=== PATIENT | female | born 1990 | race Caucasian/White ===

== ENCOUNTER 2021-10-24 14:10 | Inpatient (IN) | payer OTHER ==
[2021-10-24] MEDS ORDERED: BETAMET ACET/BETAMET NA PH 30 MG/5 ML VIAL ONE (14:52)
[2021-10-24] MEDS ORDERED: AMPICILLIN SODIUM 2 GM VIAL ONE (15:19)
[2021-10-24] MEDS ORDERED: BETAMET ACET/BETAMET NA PH 30 MG/5 ML VIAL IM ONE (15:37)
[2021-10-24] MEDS ORDERED: AMPICILLIN - 2 GM in SODIUM CHLORIDE 100 ML IVPB ONE (15:38)
[2021-10-24] MEDS ORDERED: ELECTROLYTE-148 SOLN 1,000 ML IV SCH (15:45)
[2021-10-24 16:39] VITALS: RESP 18
[2021-10-24 17:00] VITALS: BP 135/85; PULSE 98; TEMP 98
[2021-10-24 17:12] VITALS: BMI 38.9
[2021-10-26 11:22] LABS: POC NITRAZINE POS
== END 2021-10-24 16:40 | disposition short-term general hospital (02) | DRG 833 ==
LOC: JDEL 14:10 → JLDR 14:30
PROVIDERS: ADMIT Obstetrics & Gynecology; ATTEND Obstetrics & Gynecology
DX: O42.913 Preterm premature rupture of membranes, unspecified as to length of time between rupture and onset of labor, third trimester (principal); Z3A.32 32 weeks gestation of pregnancy
CPT/HCPCS: 83986-QW; 96372; C9803-CS; U0003; U0005

== ENCOUNTER 2024-10-27 00:17 | Observation (INO) | payer OTHER ==
[2024-10-27 00:26] VITALS: BMI 38.0
[2024-10-27 02:34] LABS: EPI CELLS 15 /uL (0-25.1); HYALINE CASTS 0 /uL (0-3.1); URINE APPEARANCE CLEAR; URINE BACTERIA 466 /uL (0-1359); URINE BILIRUBIN NEGATIVE (NEGATIVE); URINE COLOR ORANGE; URINE GLUCOSE (UA) NEGATIVE (NEGATIVE); URINE KETONE NEGATIVE (NEGATIVE); URINE LEUK ESTERASE 1+ (NEGATIVE); URINE NITRITE NEGATIVE (NEGATIVE); URINE PROTEIN TRACE (NEGATIVE); URINE RBC 174 /uL (0-23.9); URINE UROBILINOGEN 0.2 mg/dL (0.2-1.0); URINE WBC 62 /uL (0-25.8)
[2024-10-27 02:51] LABS: ABSOLUTE IMMATURE GRANULOCYTES 0.05 x10^3/uL (0.0-0.031); BASOPHILS # 0.03 x10^3/uL (0.01-0.08); EOSINOPHIL % 10.1 % (0.7-5.8); EOSINOPHILS # 0.86 x10^3/uL (0.04-0.36); MCHC 30.6 g/dl (32.2-35.5); MEAN CELL VOLUME 79.9 fl (79.4-94.8); MEAN PLT VOLUME 10.9 fl (9.4-12.3); MONOCYTE # 0.67 x10^3/uL (0.24-0.86); MONOCYTE % 7.8 % (4.7-12.5); RDW 18.2 % (12.1-16.8)
[2024-10-27 03:13] LABS: GLUCOSE,RANDOM 85.0 mg/dL (74-106); TOT PROT 6.5 g/dl (6.4-8.2)
[2024-10-27 03:14] LABS: CO2 23.0 mmol/L (21-32)
[2024-10-27 03:16] LABS: ALK PHOS 107.0 U/L (40-150)
[2024-10-27 03:18] LABS: LDH 235.0 U/L (84-246); SGOT/AST 28.0 U/L (5-34); SGPT/ALT 35.0 U/L (0-55)
[2024-10-27 03:19] LABS: CREATININE 0.63 mg/dL (0.55-1.3)
[2024-10-27 03:38] LABS: HCV DIAGNOSTIC IN-HOUSE W/RFLX NON-REACTIVE (NONREACTIVE); HIV INTERPRETATION NEGATIVE (NEGATIVE)
[2024-10-27] MEDS ORDERED: MAGNESIUM SULFATE IN WATER 4 GM/100 ML IVPB IVPB ONE (04:00)
[2024-10-27] MEDS ORDERED: LABETALOL HCL 20 MG/4 ML VIAL ONE (04:00)
[2024-10-27] MEDS ORDERED: MAGNESIUM 1GM/D5W - 1 GM/100 ML IVPB IVPB ONE (04:19)
[2024-10-27] MEDS: MAGNESIUM 1GM/D5W - 1 GM/100 ML IVPB IVPB ONE ×2 (04:25→04:32)
[2024-10-27] MEDS: MAGNESIUM SULFATE IN WATER 2 GM/50 ML IVPB IVPB ONE (04:26)
[2024-10-27] MEDS: LABETALOL HCL 20 MG/4 ML VIAL IVPUSH ONE (04:26)
[2024-10-27] MEDS ORDERED: MAGNESIUM SULFATE 20GM/500ML - 20 GM/500 ML INFUS.BAG ONE (05:43)
[2024-10-27] MEDS: MAGNESIUM SULFATE 20GM/500ML - 20 GM/500 ML INFUS.BAG IVPB SCH (05:50)
[2024-10-27 06:56] LABS: YEAST NONE SEEN (NEGATIVE)
[2024-10-27] MEDS ORDERED: LABETALOL HCL 100 MG TABLET (FP) ONE (09:47)
[2024-10-27] MEDS: LABETALOL HCL 100 MG TABLET (FP) PO ONE (09:50)
[2024-10-27 10:06] VITALS: TEMP 98.3
[2024-10-27 11:39] VITALS: RESP 16
[2024-10-27] MEDS: PRENATAL VITAMINS W/ FOLIC ACID TABLET (FP) PO ONE (13:00)
[2024-10-27 15:42] LABS: MCHC 30.3 g/dl (32.2-35.5); MEAN CELL VOLUME 80.0 fl (79.4-94.8); MEAN PLT VOLUME 10.4 fl (9.4-12.3); RDW 18.1 % (12.1-16.8)
[2024-10-27 15:51] LABS: INR 0.99 (0.83-1.09); PROTHROMBIN TIME (PATIENT) 10.9 SEC (9.7-13.0)
[2024-10-27 15:54] LABS: ACTIVATED PTT 30.2 SECONDS (25.2-36.5)
[2024-10-27 17:02] LABS: GLUCOSE,RANDOM 71.0 mg/dL (74-106); TOT PROT 6.1 g/dl (6.4-8.2)
[2024-10-27 17:03] LABS: CO2 24.0 mmol/L (21-32)
[2024-10-27 17:08] LABS: CREATININE 0.72 mg/dL (0.55-1.3); SGOT/AST 22.0 U/L (5-34); SGPT/ALT 30.0 U/L (0-55)
[2024-10-27 17:15] LABS: ALK PHOS 104.0 U/L (40-150)
[2024-10-27 17:33] VITALS: BP 139/88; PULSE 95
== END 2024-10-27 18:15 | disposition home or self-care (01) ==
LOC: JER 00:17 → JERBED 03:50 → UNDOADMOB 03:50 → INTOOBSV 03:50 → JERBED 05:34 → JLDR 05:34 → JERBED 09:30
PROVIDERS: ADMIT Obstetrics & Gynecology; ATTEND Obstetrics & Gynecology
PROC: 3E033GC Introduction of Other Therapeutic Substance into Peripheral Vein, Percutaneous Approach (ICD-10-PCS; principal; 2024-10-27)
PROC: 3E023GC Introduction of Other Therapeutic Substance into Muscle, Percutaneous Approach (ICD-10-PCS; 2024-10-27)
DX: I48.0 Paroxysmal atrial fibrillation (principal); E66.09 Other obesity due to excess calories
CPT/HCPCS: 36415; 80053; 81003; 83615; 83735; 84550; 85025; 85027; 85610; 85730; 86803; 87086; 87389; 99285-25; G0378